=== PATIENT | male | born 1965 | race African-American/Black ===

== ENCOUNTER 2022-11-03 02:54 | Emergency (ER) | payer MEDICAID ==
[~2022-11-03] VITALS: Ht 185.4 cm; Wt 160.0 kg
[2022-11-03 03:05] VITALS: BP 130/67
[2022-11-03] MEDS ORDERED: EPINEPHrine HCL 0.5 ML NEB NEB ONE (03:45)
[2022-11-03] MEDS ORDERED: DexAMETHasone SOD PHOS 10MG/1ML VIAL INJ IM ONE (03:45)
[2022-11-03] MEDS ORDERED: diphenhdrAMINE HCL 50 MG/1 ML VL IM ONE (03:45)
== END 2022-11-03 10:40 | disposition left against medical advice (07) ==
LOC: ER 02:54
DX: K14.8 Other diseases of tongue (principal); R06.2 Wheezing; R06.02 Shortness of breath; Z53.21 Procedure and treatment not carried out due to patient leaving prior to being seen by health care provider
CPT/HCPCS: 94640; 96372; 99281; J1100; J1200